=== PATIENT | female | born 1960 | race Asian ===

== ENCOUNTER 2017-12-23 16:15 | Emergency (ER) | payer OTHER ==
[2017-12-23] MEDS ORDERED: DEXAMETHASONE SOD PHOSPHATE 10MG/ML 1ML VIAL ONE (16:46)
== END 2017-12-23 17:00 | disposition home or self-care (01) ==
LOC: EDH 16:15
DX: L23.5 Allergic contact dermatitis due to other chemical products (principal)
CPT/HCPCS: 96372; 99283; J1100